=== PATIENT | male | born 2000 | race Caucasian/White ===

== ENCOUNTER 2022-10-02 13:18 | Emergency (ER) | payer BC ==
[~2022-10-02] VITALS: Ht 177.8 cm; Wt 68.0 kg
[2022-10-02 14:17] VITALS: BP_SYST 139
--- NOTE | 2022-10-02 14:20 | NUR ---
Patient triaged and placed in waiting room. VSS and patient appears in no acute distress at this time. Accompanied by SELF, awaiting available bed, and MD notified of need for MSE.
--- NOTE | 2022-10-02 14:51 | NUR ---
ER DR. GEORGE EXAMINING PT IN TRIAGE
[2022-10-02] MEDS ORDERED: IBUPROFEN 800 MG TABLET PO ONE (15:00)
[2022-10-02] MEDS ORDERED: ONDANSETRON 4 MG ODT TAB PO ONE (15:00)
[2022-10-02] MEDS ORDERED: ONDA-8 TL (16:17)
[2022-10-02] MEDS ORDERED: IBUP-1971 PO (16:17)
[2022-10-02 16:58] VITALS: BP_SYST 139
--- NOTE | 2022-10-02 16:58 | NUR ---
Patient given written and verbal discharge instructions and verbalizes understanding. ER MD discussed with patient the results and treatment provided. Patient in stable condition. ID arm band removed. Rx of IBUPROFEN AND ZOFRAN given. Patient educated on pain management and to follow up with PMD. Pain Scale 0/10. Opportunity for questions provided and answered. Medication side effect fact sheet provided.
== END 2022-10-02 16:58 | disposition home or self-care (01) ==
LOC: SED 13:18
DX: S60.222A Contusion of left hand, initial encounter (principal); F07.81 Postconcussional syndrome; M54.2 Cervicalgia; Z79.899 Other long term (current) drug therapy; V47.5XXA Car driver injured in collision with fixed or stationary object in traffic accident, initial encounter; Y93.89 Activity, other specified; Y92.89 Other specified places as the place of occurrence of the external cause; Y99.8 Other external cause status
CPT/HCPCS: 99284; 70450; 73130; 72125; 76376; Q0162